=== PATIENT | female | born 1960 | race Two or more races ===

== ENCOUNTER 2025-05-10 14:39 | Emergency (ER) | payer MEDICAID, OTHER ==
[~2025-05-10] VITALS: Ht 149.9 cm; Wt 64.0 kg
--- NOTE | 2025-05-10 15:54 | ED.PDOC ---
Back pain HPI HPI Comments A 65 YEAR OLD FEMALE PRESENTS TO THE ED WITH COMPLAINT OF LEFT HIP PAIN. PATIENT REPORTS THAT SHE HAS BEEN EXPERIENCING LEFT SIDED HIP/LOWER BACK PAIN WITH ASSOCIATED RADIATION DOWN HER LEFT LEG FOR THE PAST 4 DAYS. PATIENT RELAYS THAT THIS HAS NEVER HAPPENED BEFORE TO HER. PATIENT DENIES NUMBNESS, WEAKNESS, TINGLING, FALL, INJURY, FEVER, CHILLS, SHORTNESS OF BREATH, CHEST PAIN, ABDOMINAL PAIN, NAUSEA, VOMITING, HEADACHE, OR OTHER COMPLAINTS. NO OTHER SYMPTOMS OR MODIFYING FACTORS AT THIS TIME. PATIENT IS ALERT, ORIENTED X 4, AND HAS STEADY GAIT. Chief Complaint: Back Pain Time Seen by MD: 15:52 Reviewed Notes: Nurses Notes, Medications, Allergies Allergies: Coded Allergies: NO KNOWN ALLERGIES (Unverified , 05/10/25) Home Meds Active Scripts Tramadol HCl (Tramadol HCl) 50 Mg Tab, 50 MG PO BID, #20 TAB Prov:JACKIEMARIA VICTORIA RENNER 05/10/25 Information Source: Patient Mode of Arrival: Ambulatory Timing: Days Duration: Since onset Location of Back pain: (L) Lower back Radiates to: Posterior: (L) Buttocks, (L) Thigh Radiates to: Lateral: (L) Buttocks, (L) Thigh Severity: Moderate Prehospital treatment: None Quality: Cramping Onset: Spontaneous History of: None Modifying Factors: Movement, Twisting Associated signs and symptoms: None Past Medical History PAST MEDICAL HISTORY: DM Surgical History: Denies all surgeries IRRIGATION FLUME LAYER History: No Pertinent IRRIGATION FLUME LAYER History Family History Family History: Reviewed,noncontributory to illness Social History Smoker: Non-Smoker Alcohol: Denies ETOH Use Drugs: Denies Drug Use Lives In: Home Constitutional: denies: chills, diaphoresis, fatigue, fever, malaise, sweats, weakness, others EENTM: denies: blurred vision, double vision, ear bleeding, ear discharge, ear drainage, ear pain, ear ringing, eye pain, eye redness, hearing loss, mouth pain, mouth swelling, nasal discharge, nose bleeding, nose congestion, nose pain, photophobia, tearing, throat pain, throat swelling, voice changes, others Respiratory: denies: cough, hemoptysis, orthopnea, SOB at rest, shortness of breath, SOB with excertion, stridor, wheezing, others Cardiovascular: denies: chest pain, dizzy spells, diaphoresis, Dyspnea on exertion, edema, irregular heart beat, left arm pain, lightheadedness, palpitations, PND, syncope, others Gastrointestinal: denies: abdomen distended, abdominal pain, blood streaked bowels, constipated, diarrhea, dysphagia, difficulty swallowing, hematemesis, melena, nausea, poor appetite, poor fluid intake, rectal bleeding, rectal pain, vomiting, others Genitourinary: denies: abnormal vagina bleeding, burning, dyspareunia, dysuria, flank pain, frequency, hematuria, incontinence, pain, , vagina discharge, urgency, others Neurological: denies: dizziness, fainting, headache, left sided numbness, left sided weakness, numbness, paresthesia, pre-existing deficit, right sided numbness, right sided weakness, seizure, speech problems, tingling, tremors, weakness, others Musculoskeletal: reports: back pain, muscle pain, others (LT HIP PAIN); denies: gout, joint pain, joint swelling, muscle stiffness, neck pain Integumetry: denies: bruises, change in color, change in hair/nails, dryness, laceration, lesions, lumps, rash, wounds, others Allergic/Immunocompromised: denies: Difficulty Healing, Frequent Infections, Hives, Itching, others Hematologic/Lymphatic: denies: anemia, blood clots, easy bleeding, easy bruising, swollen glands, others Endocrine: denies: excessive hunger, excessive sweating, excessive thirst, excessive urination, flushing, intolerance to cold, intolerance to heat, unexplained weight gain, unexplained weight loss, others Psychiatric: denies: anxiety, bipolar disorder, depression, hopeless, panic disorder, schizophrenia, sleepless, suicidal, others All Other Systems: Reviewed and Negative Physical Exam General Appearance: No Apparent Distress, Normal HEENT: Normal ENT Inspection, PERRL/EOMI, Pharynx Normal, TMs Normal Neck: Full Range of Motion, Non-Tender, Normal, Normal Inspection Respiratory: Chest Non-Tender, Lungs Clear, No Accessory Muscle Use, No Respiratory Distress, Normal Breath Sounds Cardiovascular: No Edema, No JVD, No Murmur, No Gallop, Normal Peripheral Pulses, Regular Rate/Rhythm Breast Exam: Deferred Gastrointestinal: No Organomegaly, Non Tender, No Pulsatile Mass, Normal Bowel Sounds, Soft Genitalia: Deferred Pelvic: Deferred Rectal: Deferred Extremities: No calf tenderness, Normal capillary refill, Normal inspection, Normal range of motion, Non-tender, No pedal edema, Other (NO REDNESS, SWELLING AND DVT OF LEFT LOWER EXTREMITY. ) Musculoskeletal : Location: Left Extremity Location: Back Apperance: Tenderness (AND MUSCLE SPASM ON LOWER BACK, NO BONY TENDERNESS, SWELLING AND DEFORMITY. ) Neurologic: Alert, bpm architect II-XII nml as Tested, No Motor Deficits, Normal Affect, Normal Mood, No Sensory Deficits Cerebellar Function: Normal Reflexes: Normal Skin: Dry, Normal Color, Warm Peripheral Pulses: 2+ carotid (R), 2+ carotid (L), 2+ femoral (L), 2+ dorsalis pedis (R) Lymphatic: No Adenopathy Was a procedure done? Was a procedure done?: No Back Pain Differential Dx Differential Diagnosis: DJD, Musculoskeletal Pain, Strain Other Differential Diagnosis SCIATICA X-Ray, Labs, Meds, VS Vital Signs Date Time Temp Pulse Resp B/P (MAP) Pulse Ox O2 Delivery O2 Flow Rate FiO2 05/10/25 17:00 97.4 89 15 141/78 (99) 97 97.4 05/10/25 17:00 89 15 97 Room Air 05/10/25 14:41 97.8 89 16 154/88 96 97.8 Current Medications Medications (Trade) Dose Ordered Sig/Kwasi Route Start Time Stop Time Status Last Admin Ketorolac Tromethamine (Toradol Injection) 60 mg ONCE ONCE IM 05/10/25 16:30 05/10/25 16:31 DC 05/10/25 16:48 PATIENT: GINO TRUJILLOCCT: [id number]: [id number] : 1960 LOC: ER ROOM / BED: / AGE / SEX: 65 / F ADM STATUS: [facility] ER SERVICE [id number] ORDERING PHYSICIAN: MARIA VICTORIA MEJIA PROCEDURE(s): LUMB2 - LUMBAR SPINE 3 VIEW REASON: LOW BACK PAIN TO LEFT LOWER LEG ORDER NUMBER(s): [id number], ACCESSION NUMBER(s): [id number] CLINICAL INDICATION: LOW BACK PAIN TO LEFT LOWER LEG TECHNIQUE: 2 radiographic views of the lumbar spine were obtained. Comparison: None FINDINGS/IMPRESSION: 5 [id number] lumbar-type vertebrae. Mild straightening of the lumbar lordosis. Minimal anterior wedge deformity of L3 which appears chronic. Severe disc degenerative changes at L1-L2 with disc space narrowing, sclerosis and osteophytic bony changes. Mild diffuse demineralization. Multilevel [id number] degenerative changes of the lower thoracic and lumbar spine. zipper pull overlying the left joints which is most likely external to the patient. Small to moderate amount of fecal material within the colon. If symptoms persist, consider MRI for further evaluation. ATED BY: LISHA BETTS DO DICTATED DATE/TIME: 05/10/251733 SIGNED BY: LISHA BETTS DO SIGNED DATE/TIME: 05/10/251733 CC: X-Ray, Labs, Meds, VS Comment EXTERNAL MEDICAL RECORDS REVIEWED: [NONE] INDEPENDENT HISTORIANS: [NONE] SOCIAL DETERMINANTS OF HEALTH: [NONE] LABS ORDERED: NONE REVIEWED AND INTERPRETED RESULTS: L-SPINE XR IMAGING ORDERED: L-SPINE XR TREATMENTS ORDERED:TORADOL 60MG IM PROCEDURES PERFORMED: NONE CRITICAL CARE TIME: NONE I HAVE DISCUSSED THE PATIENT WITH THE ATTENDING PHYSICIAN DR. DÍAZ AND HE AGREES WITH THE PATIENT'S PLAN OF CARE AND DISPOSITION. BASED ON HISTORY OF PRESENT ILLNESS, AND PHYSICAL EXAM, PATIENT WILL BE DISCHARGED HOME. DISCUSSED PLAN FOR DISCHARGE HOME WITH RX [ULTRAM 50MG]. MEDICATION WARNINGS GIVEN. SHARED DECISION MAKING: DISCUSSED WITH PATIENT THAT THEIR WORKUP WAS NORMAL. PATIENT INSTRUCTED TO FOLLOW UP WITH PRIMARY CARE PROVIDER IN 1-2 DAYS FOR RE- EVALUATION OF SYMPTOMS. PATIENT VERBALIZES UNDERSTANDING TO RETURN TO ED FOR NEW OR WORSENING SYMPTOMS OR IF FOLLOW UP WITH PCP CANNOT BE OBTAINED. PATIENT FEELS COMFORTABLE GOING HOME AT THIS TIME. ALL QUESTIONS ADDRESSED AT TIME OF DISCHARGE. Time of 1ST Reevaluation: 16:00 Reevaluation 1ST: Improved Patient Education/Counseling: Diagnosis, Treatment, Need For Follow Up Family Education/Counseling: Diagnosis, Treatment, Need For Follow Up Medical Screening: No EMC Exist At This Time SEPSIS Sepsis Screen Date sepsis recognized/suspect: May 10, 2025 Time Sepsis recognized/suspect: 1445 Recent Procedure: No On Antibiotic Therapy: No Respiratory Rate >20: No Heart Rate >90: No Temp<36 C (96.8 F) or >38.3 C: No SBP <90 or MAP <65 mmHG: No New Acute Mental Status Change: No Is the patient on CPAP, BIPAP,: No Physician Orders Lumbar Spine 3 View (05/10/25 15:43) Vital Signs Date Time Temp Pulse Resp B/P (MAP) Pulse Ox O2 Delivery O2 Flow Rate FiO2 05/10/25 17:00 97.4 89 15 141/78 (99) 97 97.4 05/10/25 17:00 89 15 97 Room Air 05/10/25 14:41 97.8 89 16 154/88 96 97.8 Departure 1 Departure Time of Disposition: 16:00 Impression: Primary Impression: DDD (degenerative disc disease), lumbar Qualified Codes: M51.362 - Other intervertebral disc degeneration, lumbar region with discogenic back pain and lower extremity pain Additional Impression: Lumbar radiculopathy Disposition: HOME / SELF CARE / HOMELESS Condition: Stable Additional Instructions: FOLLOW-UP WITH PCP IN 1 TO 2 DAYS. TAKE MEDICATIONS PRESCRIBED. RETURN TO ED FOR ANY NEW OR WORSENING SYMPTOMS. e-Prescriptions Tramadol HCl (Tramadol HCl) 50 Mg Tab 50 MG PO BID, #20 TAB Prov: MARIA VICTORIA MEJIA 05/10/25 Discharged With: Self, Relative Critical Care Note Critical Care Time?: No Stability Stability form required: No Heart Score Heart Score: Heart Score Response (Comments) Value History N/A 0 EKG N/A 0 Age N/A 0 Risk Factors N/A 0 Troponin N/A 0 Total 0 I personally scribed for MARIA VICTORIA MEJIA ([email or web address]) on 05/10/25 at 15:54. Electronically submitted by Crio Ortega ([email or web address]). MARIA VICTORIA MEJIA May 10, 2025 15:54
[2025-05-10] MEDS: KETOROLAC TROMETH 60MG/2ML VIAL IM ONE (16:48)
[2025-05-10] MEDS ORDERED: TRAM-626 PO (16:50)
[2025-05-10 17:00] VITALS: BP 141/78; PULSE 89; RESP 15; TEMP 97.4; O2SAT 97
--- NOTE | 2025-05-10 17:37 | DVH ---
CLINICAL INDICATION: LOW BACK PAIN TO LEFT LOWER LEG TECHNIQUE: 2 radiographic views of the lumbar spine were obtained. Comparison: None FINDINGS/IMPRESSION: 5 [id number]-jup-xfnavsl lumbar-type vertebrae. Mild straightening of the lumbar lordosis. Minimal anterior wedge deformity of L3 which appears chronic. Severe disc degenerative changes at L1-L2 with disc sp tano narrowing, sclerosis and osteophytic bony changes. Mild diffuse demineralization. Multilevel mil [id number]-vnzcfiqt degenerative changes of the lower thoracic and lumbar spine. zipper pull overlying the left joints which is most likely external to the patient. Small to moderate amount of fecal material within the colon. If symptoms persist, consider MRI for further evaluation.
== END 2025-05-10 17:02 | disposition home or self-care (01) ==
LOC: ER 14:39
DX: M51.16 Intervertebral disc disorders with radiculopathy, lumbar region (principal); E11.9 Type 2 diabetes mellitus without complications; Z79.899 Other long term (current) drug therapy
CPT/HCPCS: 72100; 96372; 99283; J1885